=== PATIENT | male | born 1935 | race Caucasian/White ===

== ENCOUNTER 2020-02-21 13:34 | Outpatient (REF) | payer MEDICARE, SELFPAY ==
[2020-02-21 13:59] LABS: Appearance Urine CLOUDY; Color Urine YELLOW; Glucose Urine UA NEG (NEG); Leukocyte Esterase Urine 2+ (NEG); Nitrite Urine POS (NEG); Specific Gravity - Urine 1.025 (1.005-1.025); Urine Blood 3+ (NEG); Urine Ketones NEG (NEG); Urine Protein 1+ MG/DL (NEG-TRACE)
[2020-02-21 14:08] LABS: Bacteria Urine 3+ /LPF; WBC Urine TNTC /HPF (0-4)
== END 2020-02-21 13:35 | disposition home or self-care (01) ==
LOC: HO.LNP 13:34
PROVIDERS: Visit Provider Internal Medicine Medical Oncology
DX: N40.1 Benign prostatic hyperplasia with lower urinary tract symptoms (principal); E10.42 Type 1 diabetes mellitus with diabetic polyneuropathy
CPT/HCPCS: 81001; 81003; 87086